=== PATIENT | female | born 1960 ===

== ENCOUNTER 2017-08-29 17:19 | Emergency (ER) | payer OTHER ==
[2017-08-29 17:20] VITALS: BMI 27.1
[2017-08-29 17:45] VITALS: BP 132/75; PULSE 77; RESP 20; TEMP 98.3; O2SAT 98
--- NOTE | 2017-08-29 18:14 | C.PDOC ---
History Of Present Illness 56 y/o female presents to the ED for evaluation of a sinus headache, sore throat and chills since this morning. Unknown fever. Denies any other associated symptoms. SINUS IZQUIERDO, SORE THROAT, CHILLS SINCE THIS MORNING. UNK FEVER. NO OTHER ASSOC SX. EXAM NONTOXIC HEENT +FRONTAL SINUS TEND. NO NASAL CONGESTION; THROAT CLEAR LUNGS CTA B/L NO W/R/R REMAINDE RNEG Time Seen by Provider: 08/29/17 17:40 Chief Complaint (Nursing): ENT Problem History Per: Patient History/Exam Limitations: no limitations Onset/Duration Of Symptoms: Hrs Current Symptoms Are (Timing): Still Present Location Of Pain: Headache (sinus ) Associated Symptoms: Chills, Sore Throat Additional History Per: Patient Past Medical History Reviewed: Historical Data, Nursing Documentation, Vital Signs Vital Signs: Last Vital Signs Temp 98.3 F 08/29/17 17:21 Pulse 77 08/29/17 17:21 Resp 20 08/29/17 17:21 BP 132/75 08/29/17 17:21 Pulse Ox 98 08/29/17 18:14 - Medical History PMH: Anxiety, Arthritis (5 YRS AGO/KNEE PAIN), Asthma, Bronchitis, Depression, Gastritis, HTN, Pneumonia Denies: Chronic Kidney Disease Surgical History: No Surg Hx Family History: States: Unknown Family Hx - Social History Hx Tobacco Use: No Hx Alcohol Use: No Hx Substance Use: No - Immunization History Hx Tetanus Toxoid Vaccination: No Hx Influenza Vaccination: No Hx Pneumococcal Vaccination: No Review Of Systems Constitutional: Positive for: Chills ENT: Positive for: Throat Pain Neurological: Positive for: Headache (sinus ) Physical Exam - Physical Exam Appears: Non-toxic Skin: Normal Color, Warm, Dry Head: Tenderness (frontal sinus ) Eye(s): bilateral: Normal Inspection Ear(s): Bilateral: Normal Nose: Normal, No Discharge, No Other (congestion ) Oral Mucosa: Moist Throat: Normal, No Erythema, No Exudate Neck: Supple Chest: Symmetrical, No Deformity, No Tenderness Cardiovascular: Rhythm Regular, No Murmur Respiratory: Normal Breath Sounds, No Rales, No Rhonchi, No Wheezing Extremity: Normal ROM, Capillary Refill (less than 2 seconds ) Neurological/Psych: Oriented x3, Normal Speech, Normal Cognition ED Course And Treatment O2 Sat by Pulse Oximetry: 98 (on RA) Pulse Ox Interpretation: Normal Progress Note: Motrin PO and Tamiflu PO administered. Disposition Counseled Patient/Family Regarding: Diagnosis, Need For Followup, Rx Given - Disposition Referrals: YOUR,PMD [Other] Disposition: HOME/ ROUTINE Disposition Time: 18:13 Condition: IMPROVED Prescriptions: Ibuprofen [Motrin] 600 mg PO Q6 #30 tab Oseltamivir [Tamiflu] 75 mg PO BID #9 cap Instructions: Flu, Adult (DC) Forms: [employer] (Romanian) - Clinical Impression Clinical Impression: Influenza-like illness - Scribe Statement The provider has reviewed the documentation as recorded by the Scribe (Samantha Mendoza) Provider Attestation: All medical record entries made by the Scribe were at my direction and personally dictated by me. I have reviewed the chart and agree that the record accurately reflects my personal performance of the history, physical exam, medical decision making, and the department course for this patient. I have also personally directed, reviewed, and agree with the discharge instructions and disposition.
== END 2017-08-29 18:18 | disposition home or self-care (01) ==
LOC: C.ER 17:19
DX: J11.1 Influenza due to unidentified influenza virus with other respiratory manifestations (principal); I10 Essential (primary) hypertension

== ENCOUNTER 2017-09-02 06:27 | Emergency (ER) | payer OTHER ==
[2017-09-02 06:28] VITALS: BMI 27.1
[2017-09-02 06:43] VITALS: RESP 20
[2017-09-02] MEDS ORDERED: Naproxen 550 mg Tab PO STA (07:23)
[2017-09-02] MEDS ORDERED: Naproxen 550 mg Tab PO ONE (07:35)
--- NOTE | 2017-09-02 07:47 | C.PDOC ---
Time Seen by Provider: 09/02/17 07:07 Chief Complaint (Nursing): Flu-like Symptoms Past Medical History Vital Signs: Last Vital Signs Temp 97.9 F 09/02/17 06:39 Pulse 72 09/02/17 06:39 Resp 20 09/02/17 06:39 BP 146/83 09/02/17 06:39 Pulse Ox 97 09/02/17 06:39 - Medical History PMH: Anxiety, Arthritis (5 YRS AGO/KNEE PAIN), Asthma, Bronchitis, Depression, Gastritis, HTN, Pneumonia Denies: Chronic Kidney Disease Family History: States: Unknown Family Hx - Social History Hx Tobacco Use: No Hx Alcohol Use: No Hx Substance Use: No - Immunization History Hx Tetanus Toxoid Vaccination: No Hx Influenza Vaccination: No Hx Pneumococcal Vaccination: No ED Course And Treatment O2 Sat by Pulse Oximetry: 97 Disposition Counseled Patient/Family Regarding: Diagnosis, Need For Followup, Rx Given - Disposition Referrals: at [facility] [Outside] Disposition: HOME/ ROUTINE Disposition Time: 07:50 Condition: STABLE Additional Instructions: FOLLOW UP WITH YOUR DOCTOR/CLINIC IN 1-2 DAYS DRINK PLENTY OF FLUIDS USE MEDICATIONS DIRECTED RETURN TO EMERGENCY ROOM IF SYMPTOMS WORSEN SEGUIMIENTO CON URIBE MDICO / CLNICA EN 1-2 SUMMERS BEBER MUCHO LQUIDO USE MEDICAMENTOS SEGN LO INDICADO REGRESE AL VLADIMIR DE EMERGENCIA SI LOS SNTOMAS EMPEORAN Prescriptions: Benzonatate [Tessalon Perles] 100 mg PO BID PRN #15 sgl PRN Reason: Cough Naproxen 375 mg PO BID PRN #20 tablet PRN Reason: pain Phenol/Glycerin [Chloraseptic Max [place]] 1 spray MM Q6 PRN #1 spray PRN Reason: THROAT PAIN Forms: [employer] (Belarusian) Print Language: IRAQI - POA Present On Arrival: None - Clinical Impression Clinical Impression: Upper respiratory infection, Viral disease
--- NOTE | 2017-09-02 07:50 | C.PDOC ---
History Of Present Illness 56-year-old female, presents to the emergency department with complaints of sore throat and cough. Patient was seen in ED 08/29 for same complaint and discharged on Tamiflu. Patient denies any new symptoms. Time Seen by Provider: 09/02/17 07:07 Chief Complaint (Nursing): Flu-like Symptoms History Per: Patient History/Exam Limitations: no limitations Onset/Duration Of Symptoms: Days Current Symptoms Are (Timing): Still Present Past Medical History Reviewed: Historical Data, Nursing Documentation, Vital Signs Vital Signs: Last Vital Signs Temp 97.8 F 09/02/17 08:15 Pulse 64 09/02/17 08:15 Resp 20 09/02/17 08:15 BP 112/70 09/02/17 08:15 Pulse Ox 96 09/02/17 08:15 - Medical History PMH: Anxiety, Arthritis (5 YRS AGO/KNEE PAIN), Asthma, Bronchitis, Depression, Gastritis, HTN, Pneumonia Denies: Chronic Kidney Disease Family History: States: No Known Family Hx - Social History Hx Tobacco Use: No Hx Alcohol Use: No Hx Substance Use: No - Immunization History Hx Tetanus Toxoid Vaccination: No Hx Influenza Vaccination: No Hx Pneumococcal Vaccination: No Review Of Systems Constitutional: Negative for: Fever ENT: Positive for: Throat Pain. Negative for: Ear Pain, Nose Congestion, Throat Swelling Cardiovascular: Negative for: Chest Pain, Palpitations Respiratory: Positive for: Cough. Negative for: Shortness of Breath Musculoskeletal: Negative for: Neck Pain, Back Pain Skin: Negative for: Rash Neurological: Negative for: Weakness, Numbness, Headache, Dizziness Physical Exam - Physical Exam Appears: Non-toxic, No Acute Distress Skin: Normal Color, Warm, Dry, No Rash Head: Normacephalic Eye(s): bilateral: PERRL Nose: Normal Oral Mucosa: Moist Lips: Normal Appearing Throat: No Erythema, No Exudate Neck: Normal ROM, Supple Cardiovascular: Rhythm Regular, No Murmur Respiratory: Normal Breath Sounds, No Accessory Muscle Use Extremity: Normal ROM, No Deformity Neurological/Psych: Oriented x3, Normal Speech ED Course And Treatment O2 Sat by Pulse Oximetry: 97 (RA) Pulse Ox Interpretation: Normal - Other Rad CXR X-Ray: Viewed By Me, Read By Radiologist Interpretation: Accession No. : [id number]. Patient Name / ID : JA CANTRELL / [id number]. Exam Date : 09/02/2017 07:24:53 ( Approved ). Study Comment : Sex / Age : F / 56Y. Creator : Samia Kohler MD. Dictator : Samia Kohler MD. Sand Technologist : Special Procedures Technologist : Samia Kohler MD. Approver2 : Report Date : 09/02/2017 09:31:13. My Comment : . HISTORY: COMPARISON: No prior. TECHNIQUE: Chest PA and lateral. FINDINGS: LINES AND TUBES: None. LUNG AND PLEURA: The lungs are well inflated and clear. HEART AND MEDIASTINUM: The heart is not enlarged. The hilar and mediastinal contours are within normal limits. SKELETAL STRUCTURES: The bony structures are within normal limits for the patient's age. VISUALIZED UPPER ABDOMEN: Normal. OTHER FINDINGS: None. IMPRESSION: No active pulmonary disease. Progress Note: CXR ordered and reviewed. Patient treated with Tessalon and Naproxen. On reassessment, patient is feeling better and in no acute distress. Will be discharged home with Rx for tessalon. All questions answered. Disposition - Disposition Referrals: [facility] at [facility] [Outside] Disposition: HOME/ ROUTINE Disposition Time: 07:30 Condition: STABLE Additional Instructions: FOLLOW UP WITH YOUR DOCTOR/CLINIC IN 1-2 DAYS DRINK PLENTY OF FLUIDS USE MEDICATIONS DIRECTED RETURN TO EMERGENCY ROOM IF SYMPTOMS WORSEN SEGUIMIENTO CON URIBE MDICO / CLNICA EN 1-2 SUMMERS BEBER MUCHO LQUIDO USE MEDICAMENTOS SEGN LO INDICADO REGRESE AL VLADIMIR DE EMERGENCIA SI LOS SNTOMAS EMPEORAN Prescriptions: Benzonatate [Tessalon Perles] 100 mg PO BID PRN #15 sgl PRN Reason: Cough Naproxen 375 mg PO BID PRN #20 tablet PRN Reason: pain Phenol/Glycerin [Chloraseptic Max [place]] 1 spray MM Q6 PRN #1 spray PRN Reason: THROAT PAIN Forms: [employer] (Lithuanian) Print Language: WOLOF - Clinical Impression Clinical Impression: Upper respiratory infection, Viral disease - Scribe Statement The provider has reviewed the documentation as recorded by the Scribe (Angeles Yadav) All medical record entries made by the Scribe were at my direction and personally dictated by me. I have reviewed the chart and agree that the record accurately reflects my personal performance of the history, physical exam, medical decision making, and the department course for this patient. I have also personally directed, reviewed, and agree with the discharge instructions and disposition.
[2017-09-02 08:15] VITALS: BP 112/70; PULSE 64; TEMP 97.8
[2017-09-02 15:52] VITALS: O2SAT 97
== END 2017-09-02 08:15 | disposition home or self-care (01) ==
LOC: C.ER 06:27
DX: J06.9 Acute upper respiratory infection, unspecified (principal); I10 Essential (primary) hypertension

== ENCOUNTER 2018-01-14 11:13 | Emergency (ER) | payer SELFPAY ==
[2018-01-14 11:13] VITALS: BMI 26.7
--- NOTE | 2018-01-14 12:06 | C.PDOC ---
History Of Present Illness 57 y/o female with history of HTN , Asthma presents to ED with c/o cold like symptoms gradually worsen for 4 days. Patient reports subjective fever, malaise , nasal congestion, runny nose, chest tightness when coughing, productive with yellow sputum, " was unable to sleep last night due to cough". Patient has tried OTC medication with no improvement . Otherwise, pt denies high fever, chills , sore throat, drooling, neck pain, SOB, dyspnea, wheezing, palpitation, abd. pain, N/V/D, UTi sx, denies recent travel or known sick contact. At the time of evaluation, pt appears comfortable, not in resp. distress. Time Seen by Provider: 01/14/18 11:40 Chief Complaint (Nursing): Cough, Cold, Congestion History Per: Patient History/Exam Limitations: no limitations Onset/Duration Of Symptoms: Days Current Symptoms Are (Timing): Still Present Associated Symptoms: Cough, Sputum. denies: Nausea Past Medical History Reviewed: Historical Data, Nursing Documentation, Vital Signs Vital Signs: Last Vital Signs Temp 97.7 F 01/14/18 13:53 Pulse 89 01/14/18 13:53 Resp 16 01/14/18 13:53 BP 126/69 01/14/18 13:53 Pulse Ox 100 01/14/18 13:53 - Medical History PMH: Anxiety, Arthritis (5 YRS AGO/KNEE PAIN), Asthma, Bronchitis, Depression, Gastritis, HTN, Pneumonia Surgical History: No Surg Hx Family History: States: No Known Family Hx - Social History Hx Tobacco Use: No Hx Alcohol Use: No Hx Substance Use: No - Immunization History Hx Tetanus Toxoid Vaccination: No Hx Influenza Vaccination: No Hx Pneumococcal Vaccination: No Review Of Systems Constitutional: Negative for: Fever, Chills Cardiovascular: Positive for: Chest Pain Respiratory: Positive for: Cough. Negative for: Shortness of Breath Gastrointestinal: Negative for: Nausea, Vomiting Skin: Negative for: Rash Physical Exam - Physical Exam Appears: Well, Non-toxic, No Acute Distress Skin: Warm, Dry, No Rash Head: Normacephalic Eye(s): bilateral: PERRL Nose: No Flaring Oral Mucosa: Moist, No Drooling Tongue: Normal Appearing Lips: Normal Appearing Throat: No Erythema, No Exudate, No Drooling Neck: Trachea Midline, Supple Cardiovascular: Rhythm Regular Respiratory: No Decreased Breath Sounds, No Accessory Muscle Use, No Rales, No Rhonchi, No Stridor, Wheezing (bibasilar expiratory scattered) Gastrointestinal/Abdominal: Soft, No Tenderness, No Distention, No Guarding, No Rebound Back: No CVA Tenderness Extremity: No Pedal Edema, Capillary Refill (<2 seconds), No Swelling Neurological/Psych: Oriented x3, Normal Speech ED Course And Treatment - Laboratory Results Result Diagrams: 01/14/18 12:30 01/14/18 12:30 Lab Interpretation: Normal ECG: Interpreted By Me, Viewed By Me ECG Rhythm: Sinus Rhythm ECG Interpretation: Normal Interpretation Of ECG: SR@84/min, NAD, no acute T wave or ST-T changes. O2 Sat by Pulse Oximetry: 96 (RA) Pulse Ox Interpretation: Normal - Radiology CXR: Interpreted by Me, Read By Radiologist CXR Interpretation: Yes: No Acute Disease Progress Note: On re-evaluation, pt is afebrile, hemodynamicaly stable. Non- toxic, tolerate Po well in ED. PulsEOx 96% RA ENT: no acute findings. neck: Supple, (-) JVD. Lungs: CTA B/L, BS equal B/L. Abd: benign, (-) guarding, (-) rebound. back: (-) CVA tenderness. Blood work review, appears normal, no acute leukocytosis or left shift. CXR (-) acute findings. Pt has clinical findings c/w acute bronchitis, asthma exacerbation. Pt advised. ref. to f/u with PMD in 2 days for re-eval. return if any worseningor new changes. Disposition Counseled Patient/Family Regarding: Studies Performed, Diagnosis, Need For Followup, Rx Given - Disposition Referrals: [facility] at [facility] [Outside] Disposition: HOME/ ROUTINE Disposition Time: 14:00 Condition: STABLE Additional Instructions: Encourage fluids Take medication as prescribed Follow up with PMD in 1-2 days for re-evaluation. return to ED if any worsening or new changes. 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 - Scribe Statement The provider has reviewed the documentation as recorded by the Shoibliza Wilson All medical record entries made by the Shoibliza were at my direction and personally dictated by me. I have reviewed the chart and agree that the record accurately reflects my personal performance of the history, physical exam, medical decision making, and the department course for this patient. I have also personally directed, reviewed, and agree with the discharge instructions and disposition.
[2018-01-14] MEDS ORDERED: Sodium Chloride 0.9% 1,000 ML IV ONE (12:14)
[2018-01-14] MEDS ORDERED: Albuterol 0.083% Inhal Sol (2.5 mg/3 mL) UD INH STA (12:20)
[2018-01-14 12:35] LABS: BASO % 0.6 % (0.0-2.0); EOS # 0.6 K/uL (0.0-0.7); EOS % 9.9 % (0.0-4.0); HEMOGLOBIN 14.4 g/dL (11.0-16.0); LYMPH # 1.1 K/uL (1.0-4.3); MEAN CELL VOLUME 82.2 fL (81.0-99.0); MEAN CORPUSCULAR HEMOGLOBIN 28.5 pg (27.0-31.0); MEAN CORPUSCULAR HGB CONC 34.6 g/dL (33.0-37.0); MEAN PLATELET VOLUME 7.9 fL (7.2-11.7); MONO # 0.8 K/uL (0.0-0.8); MONO % 13.1 % (0.0-10.0); NEUT # 3.3 K/uL (1.8-7.0); NEUT % 57.4 % (50.0-75.0); RBC 5.07 Mil/uL (3.80-5.20); RED CELL DISTRIBUTION WIDTH 14.3 % (11.5-14.5); WHITE BLOOD COUNT 5.8 K/uL (4.8-10.8)
[2018-01-14] MEDS ORDERED: Sodium Chloride 0.9% 1,000 ML ONE (12:40)
[2018-01-14 12:50] LABS: BLOOD UREA NITROGEN 16 mg/dL (7-17); CALCIUM 9.5 mg/dl (8.6-10.4); GFR AFRICAN-AMERICAN > 60; GFR NON-AFRICAN AMERICAN > 60
[2018-01-14 13:30] LABS: SQUAMOUS EPITHIAL < 1 /hpf (0-5); URINE BILIRUBIN NEGATIVE (NEGATIVE); URINE BLOOD 2+ (NEGATIVE); URINE CLARITY Clear (Clear); URINE COLOR Yellow (YELLOW); URINE GLUCOSE (UA) NORMAL (Normal); URINE LEUKOCYTE ESTERASE NEG Leu/uL (Negative); URINE PROTEIN NEGATIVE (NEGATIVE); URINE UROBILINOGEN NORMAL mg/dL (0.2-1.0)
--- NOTE | 2018-01-14 13:41 | RAD ---
Date of service: 01/14/2018 HISTORY: SOB COMPARISON: 08/25/2017, 06/19/2016 and 07/12/2013 TECHNIQUE: Chest PA and lateral FINDINGS: LUNGS: No interval consolidation or interval pulmonary pathology noted. A 1.4 cm thin rim of lucency -left perihilar is perceived this is likely of no cyst clinical significance given its stability since 2013. . A pneumatocele is 1 consideration. A significant cavitary lesions believe less likely given its stability since 2013 PLEURA: No significant pleural effusion identified. No pneumothorax apparent. CARDIOVASCULAR: Normal. OSSEOUS STRUCTURES: No significant abnormalities. VISUALIZED UPPER ABDOMEN: Normal. OTHER FINDINGS: None. IMPRESSION: No interval pathology noted. Perihilar appearance as detailed above in stable since 2013
[2018-01-14 14:04] VITALS: O2SAT 96
[2018-01-14 14:40] VITALS: BP 124/78; PULSE 70; RESP 14; TEMP 98.9
--- NOTE | 2018-01-15 11:35 | CARD ---
APPROVED REPORT Date of service: 01/14/2018 EKG Measurement Heart [id number] <Conclusion> Normal sinus rhythm Normal ECG
== END 2018-01-14 14:39 | disposition home or self-care (01) ==
LOC: C.ER 11:13
DX: J45.909 Unspecified asthma, uncomplicated (principal)
CPT/HCPCS: 71046; 80048; 81001; 84484; 85025; 87040; 93005; 96361; 96374; 96375; 99284; J1885; J2930; J7030

== ENCOUNTER 2018-01-20 11:41 | Emergency (ER) | payer SELFPAY ==
[2018-01-20 11:50] VITALS: BMI 25.0
[2018-01-20] MEDS ORDERED: Sodium Chloride 0.9% 1,000 ML IV ONE ×2 (12:22→16:16)
[2018-01-20] MEDS ORDERED: Sodium Chloride 0.9% 1,000 ML ONE ×2 (12:49→17:49)
[2018-01-20] MEDS ORDERED: Albuterol-Ipratrop 3 mg / 0.5 (3 ml) UD ONE (12:58)
[2018-01-20] MEDS: Albuterol-Ipratrop 3 mg / 0.5 (3 ml) UD IH SCH ×2 (13:00→13:09)
--- NOTE | 2018-01-20 13:17 | C.PDOC ---
History Of Present Illness 57yo female, comes to ER for evaluation of chest pain and cough, worsening over the past week. Patient was evaluated in this ER 1 week ago for similar symptoms , had a cardiac workup which was negative and was sent home with medications. She has been taking the albuterol, zithromax, prednisone and phenergan as prescribed but with no relief. Otherwise, she denies any fever, chills, weakness , numbness, abdominal pain, vomiting and offers no other complaints. Time Seen by Provider: 01/20/18 11:57 Chief Complaint (Nursing): Chest Pain History Per: Patient History/Exam Limitations: no limitations Onset/Duration Of Symptoms: Days, Persistent Current Symptoms Are (Timing): Still Present Associated Symptoms: denies: Nausea, Dyspnea, Diaphoresis, Syncope Additional History Per: Patient Past Medical History Reviewed: Historical Data, Nursing Documentation, Vital Signs Vital Signs: Last Vital Signs Temp 98.8 F 01/20/18 16:15 Pulse 68 01/20/18 16:15 Resp 16 01/20/18 16:15 BP 135/80 01/20/18 16:15 Pulse Ox 99 01/20/18 17:55 - Medical History PMH: Anxiety, Arthritis (5 YRS AGO/KNEE PAIN), Asthma, Bronchitis, Depression, Gastritis, HTN, Pneumonia Denies: Chronic Kidney Disease Surgical History: No Surg Hx Family History: States: No Known Family Hx, Unknown Family Hx - Social History Hx Tobacco Use: No Hx Alcohol Use: No Hx Substance Use: No - Immunization History Hx Tetanus Toxoid Vaccination: No Hx Influenza Vaccination: No Hx Pneumococcal Vaccination: No Review Of Systems Except As Marked, All Systems Reviewed And Found Negative. Constitutional: Negative for: Fever, Chills Cardiovascular: Positive for: Chest Pain Respiratory: Positive for: Cough. Negative for: Shortness of Breath, Hemoptysis , Sputum Gastrointestinal: Negative for: Nausea, Vomiting, Abdominal Pain Musculoskeletal: Negative for: Shoulder Pain, Arm Pain Neurological: Negative for: Weakness, Numbness Physical Exam - Physical Exam Appears: Non-toxic, No Acute Distress Skin: Normal Color, Warm, Dry Head: Atraumatic, Normacephalic Eye(s): bilateral: Normal Inspection Neck: Normal ROM, Supple Chest: Symmetrical Cardiovascular: Rhythm Regular, No Murmur Respiratory: Normal Breath Sounds, No Rales, No Rhonchi, No Wheezing Gastrointestinal/Abdominal: Normal Exam, Soft, No Tenderness Back: Normal Inspection Extremity: Normal ROM, No Tenderness Neurological/Psych: Oriented x3, Normal Speech, Normal Cognition, Normal Motor, Normal Sensation ED Course And Treatment - Laboratory Results Result Diagrams: 01/20/18 13:18 01/20/18 13:18 Lab Interpretation: No Acute Changes Urine POC: Negative ECG: Interpreted By Az ECG Rhythm: Sinus Rhythm ECG Interpretation: No Acute Changes Rate From EC O2 Sat by Pulse Oximetry: 99 (RA) Pulse Ox Interpretation: Normal - CT Scan/US No standard instances Other Rad Studies (CT/US): Read By Radiologist, Radiology Report Reviewed CT/US Interpretation: FINDINGS: PULMONARY ARTERIES: The visualized pulmonary trunk, right and left main, lobar, segmental and proximal subsegmental branches of the pulmonary arteries are well opacified with no definitive filling defects seen to suggest acute pulmonary embolus. Pulmonary trunk measures approximately 2.8 cm. AORTA: No acute findings. No thoracic aortic aneurysm. . At ascending thoracic aorta measures approximately 3.16 cm and descending thoracic aorta measures 2.3 cm. LUNGS: Mild passive/ dependent type atelectasis both posterior lower lung zones. There also mild well scarring changes in the left lung base including the lingular the and middle lobe regions. In addition, there also appear to be some mild ground-glass opacities in the upper lobes possibly representing some air trapping. PLEURAL SPACES: Unremarkable. No effusion or pneumothorax. HEART: Heart size mildly enlarged. No significant Pericardial effusion. LYMPH NODES: Few small nonspecific mediastinal and hilar lymph nodes are felt present. The central airways midline and patent. No obvious large central endoluminal lesions. There is a small hiatal hernia. BONES, CHEST WALL: Minor multilevel degenerative spondylosis of the thoracic spine. OTHER FINDINGS: Unremarkable. IMPRESSION: No evidence of acute central pulmonary embolus. Progress Note: Labs, EKG, and CXR ordered. Rapid flu ordered. Patient given IV fluids and Duoneb. Treated with IVF NSS and decadron IV. On re-evaluation lung clear, feeling better Reassessment Condition: Improved Disposition Counseled Patient/Family Regarding: Studies Performed, Diagnosis, Need For Followup, Rx Given - Disposition Referrals: [facility] [Outside] [facility] [Outside] Disposition: HOSPITALIZED Disposition Time: 18:00 Condition: STABLE Additional Instructions: Take medications as directed Instructions: Viral Upper Respiratory Infection, Adult (DC), Acute Bronchitis Forms: [employer] (Ethiopian) - POA Present On Arrival: None - Clinical Impression Clinical Impression: Upper respiratory infection, Chest pain - PA / SAP BUSINESS ANALYST / Resident Statement MD/DO has reviewed & agrees with the documentation as recorded. - Scribe Statement The provider has reviewed the documentation as recorded by the Bonnie Bowens Provider Attestation: All medical record entries made by the Bonnie were at my direction and personally dictated by me. I have reviewed the chart and agree that the record accurately reflects my personal performance of the history, physical exam, medical decision making, and the department course for this patient. I have also personally directed, reviewed, and agree with the discharge instructions and disposition.
[2018-01-20 13:23] LABS: BASO # 0.1 K/uL (0.0-0.2); BASO % 0.8 % (0.0-2.0); EOS # 0.3 K/uL (0.0-0.7); EOS % 3.5 % (0.0-4.0); HEMOGLOBIN 14.7 g/dL (11.0-16.0); LYMPH # 3.1 K/uL (1.0-4.3); LYMPH % 33.7 % (20.0-40.0); MEAN CELL VOLUME 82.3 fL (81.0-99.0); MEAN PLATELET VOLUME 7.8 fL (7.2-11.7); MONO # 0.8 K/uL (0.0-0.8); MONO % 8.8 % (0.0-10.0); NEUT # 4.9 K/uL (1.8-7.0); NEUT % 53.2 % (50.0-75.0); NRBC % 0.1 % (0.0-2.0); RBC 5.25 Mil/uL (3.80-5.20)
[2018-01-20 13:25] LABS: WHITE BLOOD COUNT 9.1 K/uL (4.8-10.8)
[2018-01-20 13:41] LABS: ALB/GLOB RATIO 1.1 (1.0-2.1); ALBUMIN 4.1 g/dL (3.5-5.0); ALT/SGPT 35 U/L (9-52); AST/SGOT 25 U/L (14-36); BLOOD UREA NITROGEN 19 mg/dL (7-17); CALCIUM 9.6 mg/dl (8.6-10.4); GFR AFRICAN-AMERICAN > 60; GFR NON-AFRICAN AMERICAN > 60; LIPASE 81 U/L (23-300)
[2018-01-20 15:59] LABS: URINE BILIRUBIN NEGATIVE (NEGATIVE); URINE CLARITY Clear (Clear); URINE COLOR Yellow (YELLOW); URINE GLUCOSE (UA) NORMAL (Normal); URINE LEUKOCYTE ESTERASE NEG Leu/uL (Negative); URINE PROTEIN NEGATIVE (NEGATIVE); URINE UROBILINOGEN NORMAL mg/dL (0.2-1.0)
[2018-01-20 16:00] LABS: URINE BLOOD NEGATIVE (NEGATIVE)
[2018-01-20] MEDS ORDERED: Iodixanol 320 MG/ML 100 ML BOTTLE IV ONE (16:26)
--- NOTE | 2018-01-20 16:28 | RAD ---
Date of service: 01/20/2018 HISTORY: SOB COMPARISON: 01/14/2018 TECHNIQUE: Chest PA and lateral FINDINGS: LUNGS: No infiltrate. Left hilar questionable lucent-centered mass may be artifactual and the result of vascular structures. Uncertain. As this has changed in appearance when compared to examination of 2013, consider further evaluation with computed tomography of the chest. PLEURA: No significant pleural effusion identified. No pneumothorax apparent. CARDIOVASCULAR: Normal. OSSEOUS STRUCTURES: No significant abnormalities. VISUALIZED UPPER ABDOMEN: Normal. OTHER FINDINGS: None. IMPRESSION: Questionable lucent centered left hilar/ perihilar mass versus artifact. Consider further evaluation with computed tomography.
--- NOTE | 2018-01-20 17:18 | CARD ---
APPROVED REPORT Date of service: 01/20/2018 EKG Measurement Heart [id number] [place] [id number] <Conclusion> Normal sinus rhythm Nonspecific ST abnormality Abnormal ECG
--- NOTE | 2018-01-20 17:50 | CT ---
Date of service: 01/20/2018 PROCEDURE: CT Chest with contrast (Pulmonary Angiogram) HISTORY: Dyspnea COMPARISON: None comparison made with CT scan abdomen pelvis 04/17/2013 which imaged both lung bases. TECHNIQUE: Axial computed tomography images were obtained of the chest in the pulmonary arterial phase of enhancement. Coronal and sagittal reformatted images were created and reviewed. Intravenous contrast dose: 100 cc Visipaque 320 the abductors 2 appointed radiologists: Arm Radiation dose: Total exam DLP = 289.35 mGy-cm. This CT exam was performed using one or more of the following dose reduction techniques: Automated exposure control, adjustment of the mA and/or kV according to patient size, and/or use of iterative reconstruction technique. FINDINGS: PULMONARY ARTERIES: The visualized pulmonary trunk, right and left main, lobar, segmental and proximal subsegmental branches of the pulmonary arteries are well opacified with no definitive filling defects seen to suggest acute pulmonary embolus. Pulmonary trunk measures approximately 2.8 cm AORTA: No acute findings. No thoracic aortic aneurysm. . At ascending thoracic aorta measures approximately 3.16 cm and descending thoracic aorta measures 2.3 cm. LUNGS: Mild passive/ dependent type atelectasis both posterior lower lung zones. There also mild well scarring changes in the left lung base including the lingular the and middle lobe regions. In addition, there also appear to be some mild ground-glass opacities in the upper lobes possibly representing some air trapping PLEURAL SPACES: Unremarkable. No effusion or pneumothorax. HEART: Heart size mildly enlarged. No significant Pericardial effusion. LYMPH NODES: Few small nonspecific mediastinal and hilar lymph nodes are felt present. The central airways midline and patent. No obvious large central endoluminal lesions. There is a small hiatal hernia. BONES, CHEST WALL: Minor multilevel degenerative spondylosis of the thoracic spine. OTHER FINDINGS: Unremarkable. IMPRESSION: No evidence of acute central pulmonary embolus.
[2018-01-20] MEDS ORDERED: Dexamethasone 4 mg/1 ml IVP STA (17:57)
[2018-01-20 18:48] VITALS: BP 133/79; PULSE 71; RESP 19; TEMP 98.5; O2SAT 96
== END 2018-01-20 18:51 | disposition home or self-care (01) ==
LOC: C.ER 11:41
DX: J06.9 Acute upper respiratory infection, unspecified (principal); R07.9 Chest pain, unspecified
CPT/HCPCS: 71046; 71275; 80053; 81001; 83690; 85025; 85378; 87804; 93005; 94640; 96374; 99285; J1100; J7030; Q9967

== ENCOUNTER 2018-08-20 08:06 | Outpatient (CLI) | payer SELFPAY | END 2018-08-20 08:07 | disposition home or self-care (01) | LOC: C.USIC 08:07 | DX: R10.84 Generalized abdominal pain (principal) ==

== ENCOUNTER 2018-10-19 11:48 | Emergency (ER) | payer OTHER ==
[2018-10-19 11:48] VITALS: BMI 25.0
--- NOTE | 2018-10-19 13:09 | C.PDOC ---
History Of Present Illness 58 year old female presents to ED with complaint of abdominal pain and nausea for a couple of weeks. Patient also notes that she experienced vaginal spotting 1 week ago for 3 days, but it has since resolved. Patient has not had her period since 2011. She notes decreased appetite and has not eaten today. Patient denies vomiting, fever, and back pain. Time Seen by Provider: 10/19/18 12:05 Chief Complaint (Nursing): Abdominal Pain History Per: Patient History/Exam Limitations: no limitations Onset/Duration Of Symptoms: Other (2 weeks) Current Symptoms Are (Timing): Still Present Location Of Pain/Discomfort: Diffuse Radiation Of Pain To:: None Quality Of Discomfort: "Pain" Associated Symptoms: Nausea, Other (vaginal spotting). denies: Fever, Chills, Vomiting Exacerbating Factors: None Alleviating Factors: None Past Medical History Reviewed: Historical Data, Nursing Documentation, Vital Signs Vital Signs: Last Vital Signs Temp 98.1 F 10/19/18 11:49 Pulse 60 10/19/18 11:49 Resp 18 10/19/18 11:49 BP 128/76 10/19/18 11:49 Pulse Ox 98 10/19/18 11:49 - Medical History PMH: Anxiety, Arthritis (5 YRS AGO/KNEE PAIN), Asthma, Bronchitis, Depression, Gastritis, HTN, Pneumonia Denies: Chronic Kidney Disease Surgical History: No Surg Hx Family History: States: Unknown Family Hx - Social History Hx Tobacco Use: No Hx Alcohol Use: No Hx Substance Use: No - Immunization History Hx Tetanus Toxoid Vaccination: No Hx Influenza Vaccination: No Hx Pneumococcal Vaccination: No Review Of Systems Constitutional: Negative for: Fever, Chills Gastrointestinal: Positive for: Nausea, Abdominal Pain. Negative for: Vomiting, Diarrhea Genitourinary: Positive for: Vaginal Bleeding (vaginal spotting) Musculoskeletal: Negative for: Back Pain Physical Exam - Physical Exam Appears: Well, Non-toxic, No Acute Distress Skin: Normal Color, Warm, Dry Head: Atraumatic, Normacephalic Eye(s): bilateral: Normal Inspection, PERRL, EOMI Oral Mucosa: Moist Neck: Normal ROM, Supple Chest: Symmetrical, No Deformity Cardiovascular: Rhythm Regular, No Friction Rub, No Murmur Respiratory: No Accessory Muscle Use, No Rales, No Rhonchi, No Wheezing Gastrointestinal/Abdominal: Bowel Sounds (active), Soft, Tenderness (mild inconsistant diffuse tenderness), No Guarding, No Rebound Back: Normal Inspection, No CVA Tenderness Pelvic: Normal External Exam (chaperoned by Nurse Victor Manuel Nesbitt ), No Vaginal Bleeding Extremity: Capillary Refill (<2 seconds), No Swelling Neurological/Psych: Oriented x3, Normal Speech, Normal Cognition, Normal Motor Gait: Steady ED Course And Treatment - Laboratory Results Result Diagrams: 10/19/18 13:35 10/19/18 13:35 O2 Sat by Pulse Oximetry: 98 (in RA) Pulse Ox Interpretation: Normal - Other Rad CXR X-Ray: Interpreted by Me, Viewed By Me Interpretation: IMPRESSION: No acute consolidation. Redemonstrated are some minor chronic linear scarring left lateral mid to lower lung field - CT Scan/US Abdomen/Pelvis CT Other Rad Studies (CT/US): Interpreted By Me, Read By Radiologist CT/US Interpretation: IMPRESSION: There are several minimally distended fluid- filled loops of small bowel in the left mid and lower abdomen few of which exhibit mild wall thickening. Findings may represent localized enteritis. Mild localized wall thickening of the most of the sigmoid colon and rectum and . Findings may in part be due to incomplete distention, peristalsis and unopacified stool though possibility of a mild localized colitis must also be considered.. Follow-up colonoscopy suggested... Findings also consistent with asymmetric left-sided pelvic congestion syndrome as detailed above. Mild to moderate fatty hepatic infiltration Medical Decision Making Medical Decision Making: Plan: CMP, CBC, urine culture, and UA ordered for patient CXR ordered for patient Abdomen/Pelvis CT ordered for patient. Patient given Toradol On re-exam, the patient reports improvement of symptoms. Lungs are CTA, heart is RRR, abdomen is soft, non-tender and tolerating PO well. Pt is ambulatory in the ED with steady gait. Follow up with the medical doctor within 1-2 days. Return if worsened. Disposition - Disposition Referrals: [facility] [Outside] Disposition: HOME/ ROUTINE Disposition Time: 17:30 Condition: STABLE Additional Instructions: Follow up with the medical doctor within 1-2 days. Return if worsened. Prescriptions: Ciprofloxacin [Cipro] 1 tab PO BID #14 tab metroNIDAZOLE [Flagyl] 500 mg PO BID #14 tab Naproxen [Naprosyn] 500 mg PO BID #20 tab Instructions: Colitis Forms: [facility] (Maltese) - Clinical Impression Clinical Impression: Colitis - PA / CASE ADVOCATE / Resident Statement MD/DO has reviewed & agrees with the documentation as recorded. (Abigail Lua) - Scribe Statement The provider has reviewed the documentation as recorded by the Scribe (Abigail Lua) All medical record entries made by the Scribe were at my direction and personally dictated by me. I have reviewed the chart and agree that the record accurately reflects my personal performance of the history, physical exam, medical decision making, and the department course for this patient. I have also personally directed, reviewed, and agree with the discharge instructions and disposition.
[2018-10-19 13:52] LABS: BASO % 0.6 % (0.0-2.0); EOS # 0.2 K/uL (0.0-0.7); EOS % 3.2 % (0.0-4.0); HEMOGLOBIN 13.9 g/dL (11.0-16.0); LYMPH # 2.5 K/uL (1.0-4.3); LYMPH % 47.5 % (20.0-40.0); MEAN CELL VOLUME 83.2 fL (81.0-99.0); MEAN CORPUSCULAR HEMOGLOBIN 28.1 pg (27.0-31.0); MEAN CORPUSCULAR HGB CONC 33.8 g/dL (33.0-37.0); MEAN PLATELET VOLUME 8.5 fL (7.2-11.7); MONO # 0.4 K/uL (0.0-0.8); MONO % 7.3 % (0.0-10.0); NEUT # 2.2 K/uL (1.8-7.0); NEUT % 41.4 % (50.0-75.0); NRBC % 0.2 % (0.0-2.0); RBC 4.95 Mil/uL (3.80-5.20); RED CELL DISTRIBUTION WIDTH 14.3 % (11.5-14.5); WHITE BLOOD COUNT 5.3 K/uL (4.8-10.8)
[2018-10-19 13:53] LABS: ALB/GLOB RATIO 1.3 (1.0-2.1); ALBUMIN 4.7 g/dL (3.5-5.0); ALT/SGPT 22 U/L (9-52); AST/SGOT 27 U/L (14-36); BLOOD UREA NITROGEN 14 mg/dL (7-17); CALCIUM 9.9 mg/dl (8.6-10.4); GFR NON-AFRICAN AMERICAN > 60; LIPASE 93 U/L (23-300)
[2018-10-19 14:35] LABS: SQUAMOUS EPITHIAL < 1 /hpf (0-5)
[2018-10-19 14:37] LABS: URINE BILIRUBIN NEGATIVE (NEGATIVE); URINE BLOOD SMALL (NEGATIVE); URINE CLARITY Clear (Clear); URINE COLOR YELLOW (YELLOW); URINE GLUCOSE (UA) NEGATIVE (Normal); URINE PROTEIN NEGATIVE (NEGATIVE); URINE UROBILINOGEN 0.2 mg/dL (0.2-1.0)
[2018-10-19 14:38] LABS: URINE LEUKOCYTE ESTERASE NEGATIVE Leu/uL (Negative)
--- NOTE | 2018-10-19 14:52 | RAD ---
Date of service: 10/19/2018 HISTORY: abd pain, diffuse COMPARISON: Comparison made with prior chest radiograph and CTA chest both dated 01/20/2018. TECHNIQUE: 1 view obtained. FINDINGS: LUNGS: Minimal linear atelectasis and or scarring left lateral mid to lower lung field again noted. PLEURA: No significant pleural effusion identified, no pneumothorax apparent. CARDIOVASCULAR: Minor aortic atherosclerotic calcification present. Normal cardiac size. No pulmonary vascular congestion. OSSEOUS STRUCTURES: No significant abnormalities. VISUALIZED UPPER ABDOMEN: Normal. OTHER FINDINGS: None. IMPRESSION: No acute consolidation. Redemonstrated are some minor chronic linear scarring left lateral mid to lower lung field
[2018-10-19] MEDS ORDERED: Iodixanol 320 MG/ML 100 ML BOTTLE IV ONE (16:04)
--- NOTE | 2018-10-19 17:02 | CT ---
Date of service: 10/19/2018 PROCEDURE: CT Abdomen and Pelvis with Oral contrast. HISTORY: Diffuse pain COMPARISON: Comparison made with CTA chest dated 01/20/2018 which image the upper abdomen. Comparison also made with prior CT scan of the abdomen pelvis dated 04/17/2013. TECHNIQUE: Contiguous axial images of the abdomen and pelvis performed of following intravenous injection of approximately 100 cc Visipaque 320 contrast material. Additional 2D sagittal and coronal reformats generated. Radiation dose: Total exam DLP = 400.31 mGy-cm. This CT exam was performed using one or more of the following dose reduction techniques: Automated exposure control, adjustment of the mA and/or kV according to patient size, and/or use of iterative reconstruction technique. FINDINGS: LOWER THORAX: Heart size is within range of normal. No significant pericardial effusion. Small hiatal hernia. Minor scarring changes seen both lung bases including the right middle lobe and lingular region. LIVER: Liver exhibits normal size measuring nearly 17 cm in CC dimension.. Mild moderate diffuse fatty hepatic infiltration. No obvious hepatic mass collection or calcification. Portal and splenic veins are opacified. GALLBLADDER AND BILE DUCTS: Suspect small intraluminal gallbladder calculus.. PANCREAS: Pancreas appears unremarkable without masses collections or calcification. No significant pancreatic ductal dilatation. SPLEEN: Spleen exhibits normal size and attenuation pattern without mass collection or calcification. ADRENALS: No adrenal lesions KIDNEYS AND URETERS: Kidneys demonstrate symmetric nephrograms. No evidence of nephrolithiasis or hydronephrosis.. There are few tiny rounded foci of homogeneous low-attenuation both kidneys, the largest located in the posterolateral cortex mid pole right kidney. Note that these foci do exhibit Hounsfield units higher than that of simple cysts and therefore may represent hyperdense cysts. Follow-up ultrasound could confirm and exclude any solid lesions. BLADDER: Urinary bladder is incompletely distended with thick-walled appearance. Correlation with urinalysis recommended to exclude cystitis REPRODUCTIVE: There are exuberant somewhat ectatic enhancing vessels adjacent to the left aspect of the uterus consistent with a asymmetric pelvic congestion syndrome. Clinical correlation recommended. APPENDIX: Normal appendix. BOWEL: Evaluation of the bowel is somewhat limited due to the lack of oral contrast material. Stomach is incompletely distended with slight thick-walled appearance. There are a few minimally distended fluid-filled loops of small bowel left mid and lower abdomen few of which exhibit slight thick-walled appearance. Findings may represent localized enteritis. Clinical correlation recommended. No evidence of acute mechanical small bowel obstruction. There is localized wall thickening of the most of the sigmoid colon and rectum. Findings may in part be due to incomplete distention, peristalsis and unopacified stool though possibility of a mild localized colitis must also be considered.. Minimal of wall thickening of the rectum nonspecific. PERITONEUM: Unremarkable. No fluid collection. No free air. Small fat containing umbilical hernia. LYMPH NODES: Unremarkable. No enlarged lymph nodes. VASCULATURE: Unremarkable. No aortic aneurysm. Minimal aortic atherosclerotic calcification or mural plaque present. BONES: Minor multilevel degenerative spondylosis of the lower thoracic and lumbar spine. OTHER FINDINGS: None. IMPRESSION: There are several minimally distended fluid-filled loops of small bowel in the left mid and lower abdomen few of which exhibit mild wall thickening. Findings may represent localized enteritis. Mild localized wall thickening of the most of the sigmoid colon and rectum and . Findings may in part be due to incomplete distention, peristalsis and unopacified stool though possibility of a mild localized colitis must also be considered.. Follow-up colonoscopy suggested... Findings also consistent with asymmetric left-sided pelvic congestion syndrome as detailed above. Mild to moderate fatty hepatic infiltration
[2018-10-19 17:58] VITALS: BP 111/69; PULSE 55; RESP 20; TEMP 97.6
[2018-10-19 18:19] VITALS: O2SAT 98
== END 2018-10-19 17:56 | disposition home or self-care (01) ==
LOC: C.ER 11:48
DX: K52.9 Noninfective gastroenteritis and colitis, unspecified (principal)
CPT/HCPCS: 71045; 74177; 80053; 81001; 83690; 85025; 87086; 96374; 99284; J1885; Q9967